=== PATIENT | female | born 1995 | race Two or more races ===

== ENCOUNTER 2018-02-20 16:27 | Emergency (ER) | payer OTHER ==
[~2018-02-20] VITALS: Ht 157.5 cm; Wt 64.9 kg
[2018-02-20 16:57] VITALS: BP 122/68
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
[2018-02-20] MEDS ORDERED: ROBAXIN500 MG PO (17:33)
[2018-02-20] MEDS ORDERED: IBUPROFEN600 MG ORAL (17:33)
[2018-02-20] MEDS ORDERED: LIDODERM700 M1 TOPIC (17:33)
[2018-02-20 17:46] VITALS: BP 122/68
== END 2018-02-20 17:55 | disposition home or self-care (01) ==
LOC: EMR 17:15
DX: M54.6 Pain in thoracic spine (principal); V43.52XA Car driver injured in collision with other type car in traffic accident, initial encounter; Y92.410 Unspecified street and highway as the place of occurrence of the external cause
CPT/HCPCS: 99282